=== PATIENT | male | born 1985 | race Asian ===

== ENCOUNTER 2022-07-16 12:59 | Emergency (ER) | payer SELFPAY ==
[~2022-07-16] VITALS: Ht 177.8 cm; Wt 95.3 kg
[2022-07-16 13:25] VITALS: BP_SYST 123
--- NOTE | 2022-07-16 14:25 | NUR ---
PT IS AAOX3 SKIN INTACT, PT WITH RLQ PAIN 10/10, [facility] ON PHONE .
[2022-07-16] MEDS ORDERED: MORPHINE 4 MG INJ. 4 MG/ML VIAL IM ONE (14:30)
--- NOTE | 2022-07-16 14:42 | NUR ---
ER at bedside examining patient.
--- NOTE | 2022-07-16 14:43 | NUR ---
PT TO RADIOLOGY VIA .
[2022-07-16 15:19] LABS: BILIRUBIN,URINE NEGATIVE (NEGATIVE); BLOOD, URINE 3+ (NEGATIVE); CLARITY/URINE CLEAR (CLEAR); COLOR,URINE YELLOW (YELLOW); GLUCOSE,URINE NEGATIVE (NEGATIVE); KETONES,URINE NEGATIVE (NEGATIVE); LEUKOCYTE ESTERASE ,URINE NEGATIVE (NEGATIVE); NITRITE, URINE NEGATIVE (NEGATIVE); PROTEIN URINE TRACE (NEGATIVE); UROBILINOGEN,URINE 0.2 (0.2-1.0)
[2022-07-16 15:28] LABS: BACTERIA,URINE FEW /HPF (None Seen); CALCIUM OXALATE CRYSTALS,UR 0-10 /HPF (None Seen); MUCUS,URINE None Seen /LPF (None Seen); WBC,URINE 0-3 /HPF (0-3)
[2022-07-16 15:41] LABS: BASOPHILS % (AUTO) 0.1 % (0.0-2.0); HEMATOCRIT 45.3 % (36-54); HEMOGLOBIN 15.4 g/dL (14.0-18.0); LYMPHOCYTES # (AUTO) 0.5 K/uL (1.0-5.5); LYMPHOCYTES % (AUTO) 6.6 % (20.5-51.5); MEAN CORPUSCULAR HEMOGLOBIN 32 pg (27-31); MEAN CORPUSCULAR HGB CONC 34 % (32-36); MEAN CORPUSCULAR VOLUME 94 fL (79.0-98.0); MONOCYTES # (AUTO) 0.3 K/uL (0.0-1.0); MONOCYTES % (AUTO) 3.5 % (1.7-9.3); NEUTROPHILS # (AUTO) 7.4 K/uL (1.8-7.7); NEUTROPHILS % (AUTO) 89.8 % (40.0-70.0); PLATELET COUNT (AUTO) 160 K/uL (130-430); RED BLOOD CELL COUNT(AUTO) 4.81 MIL/uL (4.2-6.2); RED CELL DISTRIBUTION WIDTH 12.8 % (9.0-15.0); WHITE BLOOD COUNT (AUTO) 8.2 K/uL (4.8-10.8)
[2022-07-16] MEDS ORDERED: TAMS-11 PO (15:55)
[2022-07-16] MEDS ORDERED: IBUP-1971 PO (15:55)
[2022-07-16] MEDS ORDERED: TRAM50TA2 PO (15:55)
[2022-07-16] MEDS ORDERED: KETOROLAC TROMETHAMINE 60 MG/2 ML VIAL IM ONE (16:00)
[2022-07-16 16:43] LABS: ANION GAP 9 (5-15); CALCIUM 8.9 mg/dL (8.4-11.0); CHLORIDE 103 mmol/L (98-107); CREATININE 1.31 mg/dL (0.55-1.30); GFR AFRICAN AMERICAN 81 mL/min (>90); GLUCOSE 109 mg/dL (70-99); TOTAL BILIRUBIN 1.5 mg/dL (0.0-1.0); UREA NITROGEN, BLOOD 20 mg/dL (8-21)
[2022-07-16 16:44] LABS: ALANINE AMINOTRANSFERASE 33 U/L (12-78); AMYLASE 15 U/L (0-100); ASPARTATE AMINOTRANSFERASE 21 U/L (10-37); LIPASE 33 U/L (73-393)
--- NOTE | 2022-07-16 16:53 | NUR ---
Opportunity for questions provided and answered. Medication side effect fact sheet provided. Patient given written and verbal discharge instructions and verbalizes understanding. ER MD discussed with patient the results and treatment provided. Patient in stable condition. ID arm band removed. Opportunity for questions provided and answered. Medication side effect fact sheet provided.
[2022-07-16 16:54] VITALS: BP_SYST 123
[2022-07-16 17:03] LABS: C-REACTIVE PROTEIN QUANT < 0.2 mg/dL (0-0.5)
== END 2022-07-16 16:54 | disposition home or self-care (01) ==
LOC: SED 12:59
DX: N20.0 Calculus of kidney (principal); R10.11 Right upper quadrant pain; R11.10 Vomiting, unspecified; Z79.899 Other long term (current) drug therapy
CPT/HCPCS: 99285; 74176; 80053; 81000; 82150; 83690; 85025; 86140; 36415; 76376; 96372; 83605; J2270